=== PATIENT | female | born 2000 | race Caucasian/White ===

== ENCOUNTER 2018-05-20 01:39 | Inpatient (IN) ==
[2018-05-20 02:24] LABS: Appearance Urine Cloudy (Clear); Bacteria Urine Automated 4+ (Negative); Bilirubin Urine Negative (Negative); Color Urine Yellow; Epithelial Cell Urine Auto >30 /lpf (0-5); Glucose Urine UA Negative (Negative); Ketones Urine Negative (Negative); Leukocyte Esterase Urine 1+ (Negative); Nitrite Urine Negative (Negative); Protein Urine Negative (Negative); Specific Gravity Urine 1.013 (1.000-1.030); Urobilinogen Urine Negative (Negative); pH Urine 6.5 (4.5-7.5)
[2018-05-20 02:56] LABS: Acetaminophen < 2 ug/ml (10-30); Alanine Aminotransferase 44 U/L (12-78); Albumin Globulin Ratio 0.8 (0.9-2); Albumin Level 3.8 gm/dl (3.4-5.0); Alkaline Phosphatase 54 U/L (45-117); Aspartate Aminotransferase 26 U/L (15-37); BUN Creatinine Ratio 14.7 (10-20); Bilirubin,Total 0.4 mg/dl (0.1-1); Blood Urea Nitrogen 13 mg/dl (7-18); Calcium 9.4 mg/dl (8.5-10.1); Carbon Dioxide 23 mmol/L (21-32); Chloride 106 mmol/L (98-107); Est GFR (African American) 109.6; Est GFR (Non-African American) 94.6; Globulin 4.6 gm/dl (2.5-4.0); Glucose 103 mg/dl (70-99); Potassium 3.6 mmol/L (3.5-5.1); Sodium 138 mmol/L (136-145); Total Protein 8.4 gm/dl (6.4-8.2)
[2018-05-20 02:57] LABS: Salicylate < 1.7 mg/dl (2.8-20)
[2018-05-20 03:02] LABS: Basophils # (auto) 0.02 K/uL (0-0.2); Basophils % (auto) 0.2 %; Eosinophils # (auto) 0.01 K/uL (0-0.5); Eosinophils % (auto) 0.1 %; Hematocrit (blood only) 43.5 % (37-47); Hemoglobin 16.4 g/dL (12.0-16.0); Immature Granulocytes # (auto) 0.07 K/uL (0.00-0.02); Immature Granulocytes % (auto) 0.6 %; Lymphocytes # (auto) 3.71 K/uL (1.2-3.4); Mean Corpuscular Hgb Conc 37.7 g/dL (32-36); Mean Corpuscular Volume 87.9 fL (80-100); Mean Platelet Volume 9.4 fL (7.4-10.4); Monocytes # (auto) 0.73 K/uL (0.11-0.59); Monocytes % (auto) 5.9 %; Neutrophils # (auto) 7.84 K/uL (1.4-6.5); Neutrophils % (auto) 63.2 %; Platelet Count 248 K/uL (130-400); RDW Coefficient of Variation 12.7 % (11.5-14.5); Red Blood Count 4.95 M/uL (4.2-5.4); White Blood Count 12.38 K/uL (4.8-10.8)
[2018-05-20 03:08] LABS: Amphetamines+Metham, Urine Neg (Neg); Barbiturates, Urine Neg (Neg); Benzodiazepine, Urine Neg (Neg); Cocaine, Urine Neg (Neg); MDMA (Ecstacy), Urine Neg (Neg); Methadone, Urine Neg (Neg); Opiate, Urine Neg (Neg); Phencyclidine, Urine Neg (Neg)
[2018-05-20] MEDS ORDERED: SODIUM CHLORIDE 0.9% 1000ML 1,000 ML IV ONE (03:18)
[2018-05-20] MEDS ORDERED: SODIUM CHLORIDE 0.9% 500 ML IV SCH (03:30)
--- NOTE | 2018-05-20 05:22 | Emergency Department Note ---
Entered by Mayank Carmona acting as a scribe for Janessa Webb MD History of Present Illness General Chief Complaint: Overdose (Intentional) Stated Complaint: TOOK TOO MANY PILLS Time Seen by Provider: 05/20/18 01:55 Source: patient History of Present Illness Provider complaint: suicidal ideation Onset (ago): unknown Duration: constant and getting worse History of same: Yes Context: + significant life stressor Associated psychiatric symptoms: + depression Associated symptoms: + denies other symptoms If self harm: + has acted on plan The patient is a 18 year old female who presents to the Emergency Room with complaints of constant suicidal ideation, however today it was worse. The patient took six 150mg Effexor at 0040 in an attempt to kill herself. She states she did this because she was fighting with her boyfriend and her there has been complications between her parents. All of these stresses added up which led to her suicide attempt. This is not the first time she has overdosed on pills with the last time being a year ago. She has also tried to cut herself twice in the past year with the last episode being a month and a half ago, but she has been doing this since 3rd grade. She sees a counselor at [facility] to address these problems and the counselor knows everything. She said the reason she came to the ED tonight was because she was afraid of what the Effexor would do to her. The patient does not use tobacco, drugs, or alcohol and she denies any chance of being . Her medical history consist of bicuspid aortic valve disease, IBS, and anxiety. Home Medications Home Medications Medication Instructions Recorded Confirmed Type albuterol sulfate 2 puff INHALATION Q6H PRN 05/20/18 05/20/18 History dicyclomine 10 mg PO DIRECTED 05/20/18 05/20/18 History fluticasone-salmeterol [Advair 1 puff INHALATION DIRECTED PRN 05/20/18 History Diskus] omeprazole 40 mg PO DAILY 05/20/18 05/20/18 History sumatriptan succinate [Imitrex] 1 dose pk SUBCUT DIRECTED PRN 05/20/18 History metoprolol succinate 12.5 mg PO QAM 30 Days #15 tab 05/22/18 Rx venlafaxine 225 mg PO QAM 30 Days #90 cap 05/22/18 Rx Allergies Allergy/AdvReac Type Severity Reaction Status Date / Time cephalexin Allergy Intermediate Rash Verified 05/20/18 02:55 Past Med/Surg History Medical History Anxiety IBS (irritable bowel syndrome) Family History Other Family history non-contributory Social History Current Living Situation: Family and Other Current Living Situation Comment: boyfriend Other Information That Helps Us Care for You: No Feels Safe at Home: Yes Safety Concerns: Feels Safe At This Time Smoking Status: Never smoker Hx Alcohol Use: No Hx Substance Use: No Beliefs That Will Affect Care: None Preferred Language: Tuval[place] Review of Systems See HPI for pertinent positives & negatives. and A total of 10 systems reviewed and were otherwise negative Physical Exam Vital Signs Vital Signs - 24 hr 05/20/18 01:44 05/20/18 02:26 05/20/18 02:31 Temperature 37.1 C Temperature Source Oral Sepsis Recent Fever Within 48 Hours No Sepsis New/Unexplained Change in Mental Status No Sepsis Action Taken by Nursing No Action Required Pulse Rate 118 H 89 89 Pulse Rhythm Regular Pulse Strength Normal Respiratory Rate 18 21 20 Respiratory Effort / Characteristics Non-Labored Spontaneous Respiratory Depth Normal Respiratory Pattern Regular Blood Pressure 148/96 H 141/83 H 145/81 H Blood Pressure Mean 113 102 102 Blood Pressure Position Sitting Pulse Oximetry 97 98 99 Oxygen Delivery Method Room Air 05/20/18 03:00 05/20/18 03:30 05/20/18 04:00 Temperature Temperature Source Sepsis Recent Fever Within 48 Hours Sepsis New/Unexplained Change in Mental Status Sepsis Action Taken by Nursing Pulse Rate 94 H 122 H 97 H Pulse Rhythm Pulse Strength Respiratory Rate 15 14 23 Respiratory Effort / Characteristics Respiratory Depth Respiratory Pattern Blood Pressure 128/97 144/103 H 132/94 Blood Pressure Mean 107 116 106 Blood Pressure Position Pulse Oximetry 98 99 Oxygen Delivery Method 05/20/18 04:30 05/20/18 04:48 Temperature Temperature Source Sepsis Recent Fever Within 48 Hours Sepsis New/Unexplained Change in Mental Status Sepsis Action Taken by Nursing Pulse Rate 102 H Pulse Rhythm Pulse Strength Respiratory Rate 20 Respiratory Effort / Characteristics Respiratory Depth Respiratory Pattern Blood Pressure 141/89 H Blood Pressure Mean 106 Blood Pressure Position Pulse Oximetry 99 Oxygen Delivery Method Room Air Vital signs reviewed. General: Well-appearing 18 year old female, in no significant distress. HEENT: No scleral icterus, PERRLA, neck supple. Atraumatic. Cardiovascular: Slightly tachycardic rate and regular rhythm, no extra sounds. Pulmonary: Clear to auscultation bilaterally, normal work of breathing. Abdomen: Soft, nontender, nondistended, positive bowel sounds. Musculoskeletal: Atraumatic, no peripheral edema. Neurologic: Patient awake alert and oriented x 3, full strength in all 4 extremities. Facial muscles are symmetric. Skin: Warm, dry, no rash Psych: +SI, -HI Course 0210: Past medical records reviewed. The patient was evaluated in room A05, and a complete history and physical examination were performed. 0245: Poison control was contacted and they said we need to monitor the patient for 12 hours given the pills she took were Effexor ER. 0409: I spoke to Dr. Vitaly [facility] about the patient's case. He is going to accept the patient for further observation. Consultations Consultation #1: I spoke to Dr. Vitaly Rodriguez about the patient 's case. He is going to accept the patient for further observation. Time: 04:09 Administered Medications Discontinued Medications Acetaminophen (Tylenol) 325 mg PO Q4H PRN PRN Reason: Pain Stop: 06/20/18 16:18 Last Admin: 05/22/18 09:04 Dose: 650 mg Admin: 05/22/18 03:16 Dose: 325 mg Admin: 05/21/18 16:49 Dose: 325 mg Dicyclomine HCl (Bentyl) 10 mg PO Q6H PRN PRN Reason: Cramping Stop: 06/19/18 19:45 Last Admin: 05/20/18 20:48 Dose: 10 mg Sodium Chloride (Nss) 500 mls @ 125 mls/hr IV .Q4H ARLETH Stop: 06/19/18 03:29 Last Infusion: 05/20/18 07:24 Dose: 0 mls/hr Admin: 05/20/18 03:29 Dose: 125 mls/hr Sodium Chloride (Nss 1000ml) 1,000 mls @ 999 mls/hr IV .Q1H1M ONE Stop: 05/20/18 04:18 Last Infusion: 05/20/18 04:47 Dose: 0 mls/hr Admin: 05/20/18 03:29 Dose: 999 mls/hr Sodium Chloride (Nss 1000ml) 1,000 mls @ 125 mls/hr IV .Q8H ARLETH Stop: 06/19/18 05:34 Last Infusion: 05/21/18 13:50 Dose: 0 mls/hr Admin: 05/21/18 05:50 Dose: 125 mls/hr Infusion: 05/21/18 03:49 Dose: 125 mls/hr Admin: 05/20/18 19:49 Dose: 125 mls/hr Infusion: 05/20/18 19:49 Dose: 125 mls/hr Admin: 05/20/18 12:04 Dose: 125 mls/hr Infusion: 05/20/18 12:04 Dose: 125 mls/hr Admin: 05/20/18 05:59 Dose: 125 mls/hr Metoprolol Succinate (Toprol Xl) 12.5 mg PO QAM ARLETH Stop: 06/21/18 08:59 Last Admin: 05/22/18 09:54 Dose: 12.5 mg Ondansetron HCl (Zofran) 4 mg IV NOW STA Stop: 05/21/18 21:13 Last Admin: 05/21/18 21:15 Dose: 4 mg Pantoprazole Sodium (Protonix) 40 mg PO DAILY ARLETH Stop: 06/19/18 08:59 Last Admin: 05/22/18 08:58 Dose: 40 mg Admin: 05/21/18 08:29 Dose: 40 mg Admin: 05/20/18 08:18 Dose: 40 mg Potassium Chloride (Klor-Con M20) 40 meq PO NOW STA Stop: 05/20/18 10:09 Last Admin: 05/20/18 12:04 Dose: 40 meq Fluticasone/Salmeterol (Advair Diskus 100/50) 1 puffs INH Q12H ARLETH Stop: 06/19/18 08:59 Last Admin: 05/22/18 08:58 Dose: 1 puffs Admin: 05/21/18 21:44 Dose: 1 puffs Admin: 05/21/18 08:26 Dose: 1 puffs Admin: 05/20/18 20:47 Dose: 1 puffs Admin: 05/20/18 08:18 Dose: 1 puffs Trimethoprim/Sulfamethoxazole (Septra Ds 800/160mg Tab) 1 tab PO Q12 ARLETH Stop: 05/25/18 20:59 Last Admin: 05/22/18 08:58 Dose: 1 tab Admin: 05/21/18 21:45 Dose: 1 tab Admin: 05/21/18 08:30 Dose: 1 tab Admin: 05/20/18 20:48 Dose: 1 tab Admin: 05/20/18 14:16 Dose: 1 tab Venlafaxine HCl (Effexor Extended Release) 150 mg PO NOW ONE Stop: 05/21/18 20:00 Last Admin: 05/21/18 21:44 Dose: 150 mg Venlafaxine HCl (Effexor Extended Release) 225 mg PO QAM [facility] Stop: 06/21/18 08:59 Last Admin: 05/22/18 09:54 Dose: 225 mg Medical Decision Making Differential Diagnosis Differential diagnoses considered include mood disorder, infection, hypoglycemia , electrolyte abnormalities, cardiac sources, intracerebral event, toxicologic, neurologic, as well as others. Medical Records Attestation: I reviewed the patient's medical records. Home Medications Current Medication List: was personally reviewed by me Laboratory Data Attestation: I reviewed the patient's lab results. Result diagrams: 05/21/18 05:13 05/21/18 05:13 Lab Results 05/20/18 05/20/18 05/20/18 Range/Units 01:50 01:50 01:50 WBC (4.8-10.8) K/uL RBC (4.2-5.4) M/uL Hgb (12.0-16.0) g/dL Hct (37-47) % MCV (80-100) fL MCH (25-34) pg MCHC (32-36) g/dL RDW Std Deviation (36.4-46.3) fL RDW Coeff of Andrae (11.5-14.5) % Plt Count (130-400) K/uL MPV (7.4-10.4) fL Immature Gran % (Auto) % Neut % (Auto) % Lymph % (Auto) % [place] % (Auto) % Eos % (Auto) % Baso % (Auto) % Immature Gran # (Auto) (0.00-0.02) K/uL Neut # (Auto) (1.4-6.5) K/uL Lymph # (Auto) (1.2-3.4) K/uL [place] # (Auto) (0.11-0.59) K/uL Eos # (Auto) (0-0.5) K/uL Baso # (Auto) (0-0.2) K/uL Sodium (136-145) mmol/L Potassium (3.5-5.1) mmol/L Chloride (98-107) mmol/L Carbon Dioxide (21-32) mmol/L Anion Gap (3-11) BUN (7-18) mg/dl Creatinine (0.6-1.2) mg/dl Est Cr Clr Drug Dosing Est GFR ( Amer) Est GFR (Non-Af Amer) BUN/Creatinine Ratio (10-20) Glucose (70-99) mg/dl Calcium (8.5-10.1) mg/dl Magnesium (1.8-2.4) mg/dl Total Bilirubin (0.1-1) mg/dl Direct Bilirubin (0-0.2) mg/dl AST (15-37) U/L ALT (12-78) U/L Alkaline Phosphatase (45-117) U/L Total Protein (6.4-8.2) gm/dl Albumin (3.4-5.0) gm/dl Globulin (2.5-4.0) gm/dl Albumin/Globulin Ratio (0.9-2) Urine Color Yellow Urine Appearance Cloudy H (Clear) Urine pH 6.5 (4.5-7.5) Ur Specific [place] 1.013 (1.000-1.030) Urine Protein Negative (Negative) Urine Glucose (UA) Negative (Negative) Urine Ketones Negative (Negative) Urine Blood Negative (Negative) Urine Nitrite Negative (Negative) Urine Bilirubin Negative (Negative) Urine Urobilinogen Negative (Negative) Ur Leukocyte Esterase 1+ H (Negative) Urine WBC (Auto) 10-30 H (0-5) /hpf Urine RBC (Auto) 0-4 (0-4) /hpf U Hyaline Cast (Auto) 1-5 (0-5) /lpf U Epithel Cells (Auto) >30 H (0-5) /lpf Urine Bacteria (Auto) 4+ H (Negative) POC Ur Test NEG (NEG) Nasal Screen MRSA (PCR) (Negative) Salicylates (2.8-20) mg/dl Urine Opiates Screen Neg (Neg) Ur Methadone, Qual Neg (Neg) Acetaminophen (10-30) ug/ml Urine Barbiturates Neg (Neg) Ur Phencyclidine (PCP) Neg (Neg) U Amphetamin/Meth Scrn Neg (Neg) MDMA (Ecstasy) Screen Neg (Neg) U Benzodiazepines Scrn Neg (Neg) Ur Cocaine Metabolite Neg (Neg) U Marijuana (THC) Screen Neg (Neg) Ethyl Alcohol mg/dL (0-3) mg/dl 05/20/18 05/20/18 05/20/18 Range/Units 02:06 02:06 02:06 WBC 12.38 H (4.8-10.8) K/uL RBC 4.95 (4.2-5.4) M/uL Hgb 16.4 H (12.0-16.0) g/dL Hct 43.5 (37-47) % MCV 87.9 (80-100) fL MCH 33.1 (25-34) pg MCHC 37.7 H (32-36) g/dL RDW Std Deviation 40.0 (36.4-46.3) fL RDW Coeff of Andrae 12.7 (11.5-14.5) % Plt Count 248 (130-400) K/uL MPV 9.4 (7.4-10.4) fL Immature Gran % (Auto) 0.6 % Neut % (Auto) 63.2 % Lymph % (Auto) 30.0 % [place] % (Auto) 5.9 % Eos % (Auto) 0.1 % Baso % (Auto) 0.2 % Immature Gran # (Auto) 0.07 H (0.00-0.02) K/uL Neut # (Auto) 7.84 H (1.4-6.5) K/uL Lymph # (Auto) 3.71 H (1.2-3.4) K/uL [place] # (Auto) 0.73 H (0.11-0.59) K/uL Eos # (Auto) 0.01 (0-0.5) K/uL Baso # (Auto) 0.02 (0-0.2) K/uL Sodium 138 (136-145) mmol/L Potassium 3.6 (3.5-5.1) mmol/L Chloride 106 (98-107) mmol/L Carbon Dioxide 23 (21-32) mmol/L Anion Gap 9.0 (3-11) BUN 13 (7-18) mg/dl Creatinine 0.88 (0.6-1.2) mg/dl Est Cr Clr Drug Dosing Not Reportable Est GFR ( Amer) 109.6 Est GFR (Non-Af Amer) 94.6 BUN/Creatinine Ratio 14.7 (10-20) Glucose 103 H (70-99) mg/dl Calcium 9.4 (8.5-10.1) mg/dl Magnesium (1.8-2.4) mg/dl Total Bilirubin 0.4 (0.1-1) mg/dl Direct Bilirubin (0-0.2) mg/dl AST 26 (15-37) U/L ALT 44 (12-78) U/L Alkaline Phosphatase 54 (45-117) U/L Total Protein 8.4 H (6.4-8.2) gm/dl Albumin 3.8 (3.4-5.0) gm/dl Globulin 4.6 H (2.5-4.0) gm/dl Albumin/Globulin Ratio 0.8 L (0.9-2) Urine Color Urine Appearance (Clear) Urine pH (4.5-7.5) Ur Specific [place] (1.000-1.030) Urine Protein (Negative) Urine Glucose (UA) (Negative) Urine Ketones (Negative) Urine Blood (Negative) Urine Nitrite (Negative) Urine Bilirubin (Negative) Urine Urobilinogen (Negative) Ur Leukocyte Esterase (Negative) Urine WBC (Auto) (0-5) /hpf Urine RBC (Auto) (0-4) /hpf U Hyaline Cast (Auto) (0-5) /lpf U Epithel Cells (Auto) (0-5) /lpf Urine Bacteria (Auto) (Negative) POC Ur Test (NEG) Nasal Screen MRSA (PCR) (Negative) Salicylates < 1.7 L (2.8-20) mg/dl Urine Opiates Screen (Neg) Ur Methadone, Qual (Neg) Acetaminophen < 2 L (10-30) ug/ml Urine Barbiturates (Neg) Ur Phencyclidine (PCP) (Neg) U Amphetamin/Meth Scrn (Neg) MDMA (Ecstasy) Screen (Neg) U Benzodiazepines Scrn (Neg) Ur Cocaine Metabolite (Neg) U Marijuana (THC) Screen (Neg) Ethyl Alcohol mg/dL (0-3) mg/dl 05/20/18 05/20/18 05/20/18 Range/Units 02:06 06:00 07:02 WBC 10.71 (4.8-10.8) K/uL RBC 4.61 (4.2-5.4) M/uL Hgb 14.9 (12.0-16.0) g/dL Hct 40.6 (37-47) % MCV 88.1 (80-100) fL MCH 32.3 (25-34) pg MCHC 36.7 H (32-36) g/dL RDW Std Deviation 40.5 (36.4-46.3) fL RDW Coeff of Andrae 12.8 (11.5-14.5) % Plt Count 227 (130-400) K/uL MPV 9.3 (7.4-10.4) fL Immature Gran % (Auto) 0.4 % Neut % (Auto) 66.3 % Lymph % (Auto) 27.3 % [place] % (Auto) 5.7 % Eos % (Auto) 0.1 % Baso % (Auto) 0.2 % Immature Gran # (Auto) 0.04 H (0.00-0.02) K/uL Neut # (Auto) 7.11 H (1.4-6.5) K/uL Lymph # (Auto) 2.92 (1.2-3.4) K/uL [place] # (Auto) 0.61 H (0.11-0.59) K/uL Eos # (Auto) 0.01 (0-0.5) K/uL Baso # (Auto) 0.02 (0-0.2) K/uL Sodium (136-145) mmol/L Potassium (3.5-5.1) mmol/L Chloride (98-107) mmol/L Carbon Dioxide (21-32) mmol/L Anion Gap (3-11) BUN (7-18) mg/dl Creatinine (0.6-1.2) mg/dl Est Cr Clr Drug Dosing Est GFR ( Amer) Est GFR (Non-Af Amer) BUN/Creatinine Ratio (10-20) Glucose (70-99) mg/dl Calcium (8.5-10.1) mg/dl Magnesium (1.8-2.4) mg/dl Total Bilirubin (0.1-1) mg/dl Direct Bilirubin (0-0.2) mg/dl AST (15-37) U/L ALT (12-78) U/L Alkaline Phosphatase (45-117) U/L Total Protein (6.4-8.2) gm/dl Albumin (3.4-5.0) gm/dl Globulin (2.5-4.0) gm/dl Albumin/Globulin Ratio (0.9-2) Urine Color Urine Appearance (Clear) Urine pH (4.5-7.5) Ur Specific [place] (1.000-1.030) Urine Protein (Negative) Urine Glucose (UA) (Negative) Urine Ketones (Negative) Urine Blood (Negative) Urine Nitrite (Negative) Urine Bilirubin (Negative) Urine Urobilinogen (Negative) Ur Leukocyte Esterase (Negative) Urine WBC (Auto) (0-5) /hpf Urine RBC (Auto) (0-4) /hpf U Hyaline Cast (Auto) (0-5) /lpf U Epithel Cells (Auto) (0-5) /lpf Urine Bacteria (Auto) (Negative) POC Ur Test (NEG) Nasal Screen MRSA (PCR) Negative (Negative) Salicylates (2.8-20) mg/dl Urine Opiates Screen (Neg) Ur Methadone, Qual (Neg) Acetaminophen (10-30) ug/ml Urine Barbiturates (Neg) Ur Phencyclidine (PCP) (Neg) U Amphetamin/Meth Scrn (Neg) MDMA (Ecstasy) Screen (Neg) U Benzodiazepines Scrn (Neg) Ur Cocaine Metabolite (Neg) U Marijuana (THC) Screen (Neg) Ethyl Alcohol mg/dL < 3.0 (0-3) mg/dl 05/20/18 05/20/18 05/21/18 Range/Units 07:02 07:02 05:13 WBC 9.33 (4.8-10.8) K/uL RBC 4.57 (4.2-5.4) M/uL Hgb 14.5 (12.0-16.0) g/dL Hct 40.8 (37-47) % MCV 89.3 (80-100) fL MCH 31.7 (25-34) pg MCHC 35.5 (32-36) g/dL RDW Std Deviation 42.0 (36.4-46.3) fL RDW Coeff of Andrae 13.0 (11.5-14.5) % Plt Count 206 (130-400) K/uL MPV 9.2 (7.4-10.4) fL Immature Gran % (Auto) 0.8 % Neut % (Auto) 64.8 % Lymph % (Auto) 28.1 % [place] % (Auto) 6.1 % Eos % (Auto) 0.1 % Baso % (Auto) 0.1 % Immature Gran # (Auto) 0.07 H (0.00-0.02) K/uL Neut # (Auto) 6.05 (1.4-6.5) K/uL Lymph # (Auto) 2.62 (1.2-3.4) K/uL [place] # (Auto) 0.57 (0.11-0.59) K/uL Eos # (Auto) 0.01 (0-0.5) K/uL Baso # (Auto) 0.01 (0-0.2) K/uL Sodium 137 (136-145) mmol/L Potassium 3.4 L (3.5-5.1) mmol/L Chloride 106 (98-107) mmol/L Carbon Dioxide 23 (21-32) mmol/L Anion Gap 9.0 (3-11) BUN 12 (7-18) mg/dl Creatinine 0.83 (0.6-1.2) mg/dl Est Cr Clr Drug Dosing 119.5 Est GFR ( Amer) 117.7 Est GFR (Non-Af Amer) 101.5 BUN/Creatinine Ratio 14.0 (10-20) Glucose 107 H (70-99) mg/dl Calcium 8.5 (8.5-10.1) mg/dl Magnesium 2.2 Cancelled (1.8-2.4) mg/dl Total Bilirubin 0.6 (0.1-1) mg/dl Direct Bilirubin 0.1 (0-0.2) mg/dl AST 20 (15-37) U/L ALT 40 (12-78) U/L Alkaline Phosphatase 50 (45-117) U/L Total Protein 7.6 (6.4-8.2) gm/dl Albumin 3.5 (3.4-5.0) gm/dl Globulin (2.5-4.0) gm/dl Albumin/Globulin Ratio (0.9-2) Urine Color Urine Appearance (Clear) Urine pH (4.5-7.5) Ur Specific [place] (1.000-1.030) Urine Protein (Negative) Urine Glucose (UA) (Negative) Urine Ketones (Negative) Urine Blood (Negative) Urine Nitrite (Negative) Urine Bilirubin (Negative) Urine Urobilinogen (Negative) Ur Leukocyte Esterase (Negative) Urine WBC (Auto) (0-5) /hpf Urine RBC (Auto) (0-4) /hpf U Hyaline Cast (Auto) (0-5) /lpf U Epithel Cells (Auto) (0-5) /lpf Urine Bacteria (Auto) (Negative) POC Ur Test (NEG) Nasal Screen MRSA (PCR) (Negative) Salicylates (2.8-20) mg/dl Urine Opiates Screen (Neg) Ur Methadone, Qual (Neg) Acetaminophen (10-30) ug/ml Urine Barbiturates (Neg) Ur Phencyclidine (PCP) (Neg) U Amphetamin/Meth Scrn (Neg) MDMA (Ecstasy) Screen (Neg) U Benzodiazepines Scrn (Neg) Ur Cocaine Metabolite (Neg) U Marijuana (THC) Screen (Neg) Ethyl Alcohol mg/dL (0-3) mg/dl 05/21/18 Range/Units 05:13 WBC (4.8-10.8) K/uL RBC (4.2-5.4) M/uL Hgb (12.0-16.0) g/dL Hct (37-47) % MCV (80-100) fL MCH (25-34) pg MCHC (32-36) g/dL RDW Std Deviation (36.4-46.3) fL RDW Coeff of Andrae (11.5-14.5) % Plt Count (130-400) K/uL MPV (7.4-10.4) fL Immature Gran % (Auto) % Neut % (Auto) % Lymph % (Auto) % [place] % (Auto) % Eos % (Auto) % Baso % (Auto) % Immature Gran # (Auto) (0.00-0.02) K/uL Neut # (Auto) (1.4-6.5) K/uL Lymph # (Auto) (1.2-3.4) K/uL [place] # (Auto) (0.11-0.59) K/uL Eos # (Auto) (0-0.5) K/uL Baso # (Auto) (0-0.2) K/uL Sodium 138 (136-145) mmol/L Potassium 3.5 (3.5-5.1) mmol/L Chloride 108 H (98-107) mmol/L Carbon Dioxide 23 (21-32) mmol/L Anion Gap 7.0 (3-11) BUN 9 (7-18) mg/dl Creatinine 0.83 (0.6-1.2) mg/dl Est Cr Clr Drug Dosing 119.5 Est GFR ( Amer) 117.7 Est GFR (Non-Af Amer) 101.5 BUN/Creatinine Ratio 11.2 (10-20) Glucose 114 H (70-99) mg/dl Calcium 8.1 L (8.5-10.1) mg/dl Magnesium (1.8-2.4) mg/dl Total Bilirubin 0.7 (0.1-1) mg/dl Direct Bilirubin (0-0.2) mg/dl AST 18 (15-37) U/L ALT 33 (12-78) U/L Alkaline Phosphatase 42 L (45-117) U/L Total Protein 7.1 (6.4-8.2) gm/dl Albumin 3.2 L (3.4-5.0) gm/dl Globulin 3.9 (2.5-4.0) gm/dl Albumin/Globulin Ratio 0.8 L (0.9-2) Urine Color Urine Appearance (Clear) Urine pH (4.5-7.5) Ur Specific [place] (1.000-1.030) Urine Protein (Negative) Urine Glucose (UA) (Negative) Urine Ketones (Negative) Urine Blood (Negative) Urine Nitrite (Negative) Urine Bilirubin (Negative) Urine Urobilinogen (Negative) Ur Leukocyte Esterase (Negative) Urine WBC (Auto) (0-5) /hpf Urine RBC (Auto) (0-4) /hpf U Hyaline Cast (Auto) (0-5) /lpf U Epithel Cells (Auto) (0-5) /lpf Urine Bacteria (Auto) (Negative) POC Ur Test (NEG) Nasal Screen MRSA (PCR) (Negative) Salicylates (2.8-20) mg/dl Urine Opiates Screen (Neg) Ur Methadone, Qual (Neg) Acetaminophen (10-30) ug/ml Urine Barbiturates (Neg) Ur Phencyclidine (PCP) (Neg) U Amphetamin/Meth Scrn (Neg) MDMA (Ecstasy) Screen (Neg) U Benzodiazepines Scrn (Neg) Ur Cocaine Metabolite (Neg) U Marijuana (THC) Screen (Neg) Ethyl Alcohol mg/dL (0-3) mg/dl ECG Data Indication: toxicologic Rate (beats per minute): 85 Rhythm: normal sinus Findings: no PAC, no PVC and no acute ischemic change Blood Pressure Blood Pressure Findings: Elevated blood pressure Blood Pressure Disposition: further management by hospitalist MDM Narrative This pt was evaluated and appeared to be in no distress. IV access was obtained and lab work was drawn. Pt was placed on the night monitor. IVF were given. Pt remained stable in ED. Poison control was contacted and recommended extended tele monitoring d/t sustained release formulation ingested. Pt was d/w the hospitalist for further management. Pt will require psych eval after medically clear. Impression & Plan Medication overdose, Suicide attempt Discharge Plan Visit Data *Final* Discharge Date/Time: 05/20/18 04:48 Chief Complaint: Overdose (Intentional) Stated Complaint: TOOK TOO MANY PILLS ED Provider: Janessa Webb Discharge Problem: Medication overdose, Suicide attempt Patient Disposition: Admitted As Inpatient Condition: Good Discharge Instructions Interventions: ED Discharge Assessment Last Done: 05/20/18 04:48 The scribe's documentation has been prepared under my direction and personally reviewed by me in its entirety. I confirm that the note above accurately reflects all work, treatment, procedures, and medical decision making performed by me.
[2018-05-20] MEDS: SODIUM CHLORIDE 0.9% 1000ML 1,000 ML IV SCH ×3 (05:59→19:49)
--- NOTE | 2018-05-20 06:29 | History and Physical Report ---
DATE OF ADMISSION: 05/20/2018 CHIEF COMPLAINT: Drug overdose, suicidal ideation. HISTORY OF PRESENT ILLNESS: This is a 18-year-old female with past medical history significant for major depression, recurrent, bicuspid aortic wall, mild persistent asthma, lactose intolerance, GERD, irritable bowel syndrome, presents with suicidal ideation and drug overdose. She took 6 tablets of Effexor 150 mg long acting around 12:40 in the morning. She says she has been suicidal for a long time. She has a history of cutting herself and also taking pills in attempt to end her life. She is still feeling the same. She is somewhat tachycardic, otherwise hemodynamics are okay. Complains of some dizziness, nausea and some abdominal discomfort. Denies any chest pain, no shortness of breath, no cough, not feeling cold, no fever. Appetite is not that great, not sleeping much, have racing thoughts. Says normal bowel and bladder movements. Currently, alert and oriented. Boyfriend is in the room. ALLERGIES: CEPHALEXIN. PAST MEDICAL HISTORY: As mentioned above. PAST SURGICAL HISTORY: EGD with biopsies, excision of lipoma. MEDICATIONS: The patient is on omeprazole 40 mg p.o. daily, Effexor XR 150 mg p.o. daily, albuterol 2 puffs every 4 hours p.r.n., Bentyl 10 mg p.o. q.i.d. p.r.n., Advair Diskus 100/50 mcg 1 puff b.i.d., Imitrex p.r.n., hydroxyzine 25 mg p.o. daily p.r.n. FAMILY HISTORY: Significant for: Father had cancer, thyroid disorder. Mother had breast cancer, lactose intolerance, fibromyalgia, migraine headaches. Sister has migraine headaches, GERD, polycystic ovarian syndrome. SOCIAL HISTORY: Single. No smoking history. No alcohol history. No drug history. REVIEW OF SYMPTOMS: As per HPI. Rest of review of symptoms negative. PHYSICAL EXAMINATION: GENERAL: The patient is of moderate build, not in acute distress. VITAL SIGNS: Temperature 37.1, pulse 97, respiratory rate 23, blood pressure 132/94, oxygen 99% room air. HEENT: No pallor, no icterus. Pupils equal, round and reactive to light. NECK: No JVD, no neck masses, no carotid bruits. CARDIOVASCULAR: S1, S2 heard, regular rate and rhythm. Some tachycardia. No murmurs, no gallop. RESPIRATORY SYSTEM: Normal AP diameter. No accessory muscle use. No wheezing, no crackles. ABDOMEN: Soft, bowel sounds present. Nontender. No distention. CENTRAL NERVOUS SYSTEM: Cranial nerves II-XII grossly intact. Nonfocal. EXTREMITIES: No edema, no erythema. LABORATORY DATA: WBC 12.3, hemoglobin 16.4, hematocrit 43.5, platelets 248. Sodium 138, potassium 3.6, chloride 106, bicarbonate 23, BUN 13, creatinine 0.8, serum glucose 103, calcium 9.4, total bilirubin 0.4, AST 26, ALT 44, alkaline phosphatase 54, total protein 8.4, albumin 3.8. Urinalysis positive for leukocyte esterase. test negative. Salicylate is less than 1.7, acetaminophen less than 2. Rest of urine tox screen is negative. Alcohol level less than 3. EKG: Shows normal sinus rhythm with rate of 85, no acute ST changes seen. No QT prolongation seen. ASSESSMENT AND PLAN: This is a 18-year-old female who presents with suicidal ideation, drug overdose. 1. Suicidal ideation and drug overdose with 6 tablets of Effexor long acting 150 mg. ER contacted poison control and advised for 12 hours monitoring. We will give IV fluids, repeat EKG in a.m., repeat labs and monitor in tele floor, one on one observation. History of suicidal ideation in the past as per the patient, says this is ongoing for long time. Consult psychiatry in the a.m. and the patient is okay to go to behavioral health unit once cleared medically. 2. History of asthma. Continue Advair Diskus and albuterol p.r.n. 3. Gastroesophageal reflux disease. Continue omeprazole. 4. History of migraines. Imitrex p.r.n., which is held for now. 5. Irritable bowel syndrome. We are holding dicyclomine for now. 6. History of depression, recurrent. Holding venlafaxine for now as she overdosed on it and await psychiatric consult. 7. Deep venous thrombosis prophylaxis. SCDs for now. 8. Disposition: Admit to tele floor. Plan to discharge to Behavioral Health Unit when patient is medically stable. Level 1 full code. MTDD
[2018-05-20 07:14] LABS: Basophils # (auto) 0.02 K/uL (0-0.2); Basophils % (auto) 0.2 %; Eosinophils # (auto) 0.01 K/uL (0-0.5); Eosinophils % (auto) 0.1 %; Hematocrit (blood only) 40.6 % (37-47); Hemoglobin 14.9 g/dL (12.0-16.0); Immature Granulocytes # (auto) 0.04 K/uL (0.00-0.02); Immature Granulocytes % (auto) 0.4 %; Lymphocytes # (auto) 2.92 K/uL (1.2-3.4); Lymphocytes % (auto) 27.3 %; Mean Corpuscular Hgb Conc 36.7 g/dL (32-36); Mean Corpuscular Volume 88.1 fL (80-100); Mean Platelet Volume 9.3 fL (7.4-10.4); Monocytes # (auto) 0.61 K/uL (0.11-0.59); Monocytes % (auto) 5.7 %; Neutrophils # (auto) 7.11 K/uL (1.4-6.5); Neutrophils % (auto) 66.3 %; Platelet Count 227 K/uL (130-400); RDW Coefficient of Variation 12.8 % (11.5-14.5); RDW Standard Deviation 40.5 fL (36.4-46.3); Red Blood Count 4.61 M/uL (4.2-5.4); White Blood Count 10.71 K/uL (4.8-10.8)
[2018-05-20 07:46] LABS: Albumin Level 3.5 gm/dl (3.4-5.0); Bilirubin Direct 0.1 mg/dl (0-0.2); Calcium 8.5 mg/dl (8.5-10.1); Creatinine Clr Calc Pharmacy 119.5 ml/min; Est GFR (African American) 117.7; Est GFR (Non-African American) 101.5; Magnesium 2.2 mg/dl (1.8-2.4); Potassium 3.4 mmol/L (3.5-5.1)
[2018-05-20 07:48] LABS: Bilirubin,Total 0.6 mg/dl (0.1-1); Total Protein 7.6 gm/dl (6.4-8.2)
[2018-05-20] MEDS: FLUTICASONE/SALMETEROL 100/50 (ADVAIR) 14 PUFF/1 INHALER INH SCH ×2 (08:18→20:47)
[2018-05-20] MEDS: PANTOprazole 40 MG TAB PO SCH (08:18)
--- NOTE | 2018-05-20 09:51 | Hospitalist Progress Note ---
Date of Service May 20, 2018 Assessment & Plan (1) Medication overdose: This is a 18-year-old female who presents after drug misuse of Effexor and concerns of suicidal ideation Drug Overdose, Drug Misuse, possible suicidal ideations - she took 6 tablets of Effexor (venlafaxine) rather than once a day as prescribed at 12:40 Am prior to coming to the hospital -In the ED, poison control was contacted and advised for 12 hours monitoring -currently on telemetry monitoring, on IV fluids 125 cc/hr normal saline, monitor EKGs for QTc as venlafaxine may cause QT prolongation History of depression, recurrent. -Holding venlafaxine for now -patient reports that she does not take hydroxyzine anymore for anxiety because it just makes her drowsy; hold hydroxyzine -behavioral health consult requested Urine with positive bacteria -start bactrim in case there is an urinary tract infection History of asthma -Continue Advair Diskus and albuterol p.r.n. Gastroesophageal reflux disease -Continue omeprazole. History of migraines -Imitrex p.r.n., which is held for now. Irritable bowel syndrome -holding dicyclomine for now. Deep venous thrombosis prophylaxis. SCDs Full Code Family father Keanu [phone] mother Marino [phone] Subjective Patient seen and examined at bedside. Patient denies chest pain or shortness of breath. Denies lightheadedness. She reported that she slept a little bit since coming from emergency room. Patient denies dsyuria but dose report of frequent urinary tract infections. When patient was asked about drug misuse ingestion for which she came to the hospital for, she reports that she took 6 tablets of Effexor (venlafaxine) rather than once a day as prescribed at 12:40 Am prior to coming to the hospital Reports 1 episode of vomiting in the ED but currently only feeling some nausea. Medical doctor asked what were her thoughts when she took those pills at the time and she reports that she was not thinking at all and just took them. Denies taking medication with alcohol Reporting current stressors in her life recently She reported last year she also overtook hydroxyzine and then slept for 3 days. Also reports she was not thinking anything at the time. When medical doctor asked what were her thoughts subsequently to last year's drug misuse, she reports that she has feelings of suicidality since 3rd grade She reports that recently she has been in the interview process at [facility] with the [facility] to be assigned an outpatient psychiatrist but has not seen an actual psychiatrist yet. Physical Exam 2 Vital Signs (Past 24 Hours): Last Vital Signs Temp 37.2 C 05/20/18 08:00 Pulse 68 05/20/18 08:00 Resp 20 05/20/18 08:00 BP 141/82 H 05/20/18 08:00 Pulse Ox 98 05/20/18 08:00 Constitutional: WD/WN, vitals as above Eyes: PERRL, conjunctivae normal, anicteric sclerae EOM intact bilaterally ENMT: external ear and nose normal, oropharynx normal Neck: normal visual inspection and trachea midline Respiratory: normal respiratory effort, lungs clear to auscultation Cardiovascular: RRR, no murmur, no edema Gastrointestinal (Abdomen): normal bowel sounds, soft, nontender, no hepatosplenomegaly Musculoskeletal: no cyanosis or clubbing, extremities motor strength 5/5 Head/Neck/Chest: normocephalic and head atraumatic Neurologic: PERRL, EOMI, accommodation nl, no face palsy, no dysarthria CN' s II-XI intact bilaterally Psychiatric: Orientation: alert, oriented x 3 and oriented to person Eye Contact: good eye contact Speech: normal rate/rhythm/volume of speech _ (1) Medication overdose Encounter type: initial encounter Injury intent: intentional self-harm Qualified Code(s): T50.902A - Poisoning by unspecified drugs, medicaments and biological substances, intentional self-harm, initial encounter
[2018-05-20] MEDS ORDERED: POTASSIUM CHLORIDE 20 MEQ TABCR PO STA (10:08)
[2018-05-20] MEDS: SULFAMETHOXAZOLE/TRIMETHOPRIM DS 800/160MG TAB PO SCH ×2 (14:16→20:48)
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
[2018-05-20] MEDS ORDERED: DICYCLOMINE HCL 10 MG CAP PO PRN (19:46)
[2018-05-20] MEDS ORDERED: ALUMINUM/MAGNESIUM SUSP 30 ML UDC PO PRN (19:47)
[2018-05-21] MEDS: SODIUM CHLORIDE 0.9% 1000ML 1,000 ML IV SCH (05:50)
[2018-05-21 06:07] LABS: Basophils # (auto) 0.01 K/uL (0-0.2); Basophils % (auto) 0.1 %; Eosinophils # (auto) 0.01 K/uL (0-0.5); Eosinophils % (auto) 0.1 %; Hematocrit (blood only) 40.8 % (37-47); Hemoglobin 14.5 g/dL (12.0-16.0); Immature Granulocytes # (auto) 0.07 K/uL (0.00-0.02); Immature Granulocytes % (auto) 0.8 %; Lymphocytes # (auto) 2.62 K/uL (1.2-3.4); Lymphocytes % (auto) 28.1 %; Mean Corpuscular Hgb Conc 35.5 g/dL (32-36); Mean Corpuscular Volume 89.3 fL (80-100); Mean Platelet Volume 9.2 fL (7.4-10.4); Monocytes # (auto) 0.57 K/uL (0.11-0.59); Monocytes % (auto) 6.1 %; Neutrophils # (auto) 6.05 K/uL (1.4-6.5); Neutrophils % (auto) 64.8 %; Platelet Count 206 K/uL (130-400); Red Blood Count 4.57 M/uL (4.2-5.4); White Blood Count 9.33 K/uL (4.8-10.8)
[2018-05-21 06:29] LABS: Albumin Level 3.2 gm/dl (3.4-5.0); BUN Creatinine Ratio 11.2 (10-20); Calcium 8.1 mg/dl (8.5-10.1); Creatinine Clr Calc Pharmacy 119.5 ml/min; Est GFR (African American) 117.7; Est GFR (Non-African American) 101.5; Potassium 3.5 mmol/L (3.5-5.1)
[2018-05-21 06:31] LABS: Albumin Globulin Ratio 0.8 (0.9-2); Bilirubin,Total 0.7 mg/dl (0.1-1); Globulin 3.9 gm/dl (2.5-4.0); Total Protein 7.1 gm/dl (6.4-8.2)
[2018-05-21] MEDS: FLUTICASONE/SALMETEROL 100/50 (ADVAIR) 14 PUFF/1 INHALER INH SCH ×2 (08:26→21:44)
[2018-05-21] MEDS: PANTOprazole 40 MG TAB PO SCH (08:29)
[2018-05-21] MEDS: SULFAMETHOXAZOLE/TRIMETHOPRIM DS 800/160MG TAB PO SCH ×2 (08:30→21:45)
--- NOTE | 2018-05-21 09:58 | Hospitalist Progress Note ---
Date of Service May 21, 2018 Assessment & Plan (1) Medication overdose: This is a 18-year-old female who presents after drug misuse of Effexor and concerns of suicidal ideation Drug Overdose, Drug Misuse, possible suicidal ideations - she took 6 tablets of Effexor (venlafaxine) rather than once a day as prescribed at 12:40 Am prior to coming to the hospital -In the ED, poison control was contacted and advised for 12 hours monitoring -patient has on this admission been monitored for more than the recommended 12 hours on telemetry, was mildly tachycardic in afternoon of 05/20/18 while on IV fluids -Heart rate controlled on 05/21/18 and no progressive changes to QTc; will monitor on telemetry off IV fluids History of depression, recurrent. -Holding venlafaxine for now -patient reports that she does not take hydroxyzine anymore for anxiety because it just makes her drowsy; hold hydroxyzine -as of 05/20/18 psychiatry consult, patient recommended that when medically stable the patient's outpatient dose of Effexor for depression to be increased from 150 mg daily to 225 mg daily and could be ordered as venlafaxine ER 150 mg capsule plus venlafaxine 75 mg capsule to be taken together -as of 05/21/18 hospitalist physician will continue to hold venlafaxine for now and if patient remains with tachycardia symptoms off Iv fluids on 05/21/18 , then venlafaxine can be considered to be started on 05/22/18 Urine with positive bacteria -started bactrim on 05/20/18 in case there is an urinary tract infection; continue bactrim History of asthma -Continue Advair Diskus and albuterol p.r.n. Gastroesophageal reflux disease -Continue omeprazole. History of migraines -Imitrex p.r.n., which is held for now. Irritable bowel syndrome -holding dicyclomine for now. Deep venous thrombosis prophylaxis. SCDs Full Code Family father Keanu [phone] mother Marino [phone] Subjective Patient's heart rate is doing better today. No longer tachycardic. And no progression of the QTc interval on EKG. QTC on EKG is 433 today. Patient denies shortness of breath. Reports chest discomfort on palpation which is mild and likely muscular skeletal in nature. Patient denies nausea or abdominal pain. Physical Exam 2 Vital Signs (Past 24 Hours): Last Vital Signs Temp 36.7 C 05/21/18 07:02 Pulse 91 H 05/21/18 03:14 Resp 16 05/21/18 07:02 BP 133/89 05/21/18 07:02 Pulse Ox 98 05/21/18 07:02 Constitutional: WD/WN, vitals as above Eyes: PERRL, conjunctivae normal, anicteric sclerae EOM intact bilaterally ENMT: external ear and nose normal, oropharynx normal Neck: normal visual inspection and trachea midline Respiratory: normal respiratory effort, lungs clear to auscultation Cardiovascular: RRR, no murmur, no edema Gastrointestinal (Abdomen): normal bowel sounds, soft, nontender, no hepatosplenomegaly Musculoskeletal: no cyanosis or clubbing, extremities motor strength 5/5 Head/Neck/Chest: normocephalic and head atraumatic Neurologic: PERRL, EOMI, accommodation nl, no face palsy, no dysarthria CN' s II-XI intact bilaterally Psychiatric: Orientation: alert, oriented x 3 and oriented to person Eye Contact: good eye contact Speech: normal rate/rhythm/volume of speech _ (1) Medication overdose Encounter type: initial encounter Injury intent: intentional self-harm Qualified Code(s): T50.902A - Poisoning by unspecified drugs, medicaments and biological substances, intentional self-harm, initial encounter
[2018-05-21] MEDS: ACETAMINOPHEN 325 MG TAB PO PRN (16:49)
[2018-05-21] MEDS ORDERED: VENLAFAXINE HCL XR 150 MG CAPXR PO ONE (19:59)
[2018-05-21] MEDS ORDERED: ONDANSETRON INJ 2 MG/ML 2 ML VIAL IV STA (21:12)
[2018-05-22] MEDS: ACETAMINOPHEN 325 MG TAB PO PRN ×2 (03:16→09:04)
[2018-05-22] MEDS: PANTOprazole 40 MG TAB PO SCH (08:58)
[2018-05-22] MEDS: FLUTICASONE/SALMETEROL 100/50 (ADVAIR) 14 PUFF/1 INHALER INH SCH (08:58)
[2018-05-22] MEDS: SULFAMETHOXAZOLE/TRIMETHOPRIM DS 800/160MG TAB PO SCH (08:58)
[2018-05-22] MEDS ORDERED: METOPROLOL TARTRATE 25 MG TAB PO SCH (09:00)
[2018-05-22] MEDS ORDERED: VENLAFAXINE HCL XR 75 MG CAPXR PO SCH (09:00)
[2018-05-22] MEDS ORDERED: METOPROLOL SUCC 25MG EXT REL TAB PO SCH (09:00)
--- NOTE | 2018-05-22 13:11 | Hospitalist Progress Note ---
Date of Service May 22, 2018 Assessment & Plan (1) Medication overdose: This is a 18-year-old female who presents after drug misuse of Effexor and concerns of suicidal ideation Drug Overdose, Drug Misuse, possible suicidal ideations - she took 6 tablets of Effexor (venlafaxine) rather than once a day as prescribed at 12:40 Am prior to coming to the hospital -In the ED, poison control was contacted and advised for 12 hours monitoring -patient has on this admission been monitored for more than the recommended 12 hours on telemetry, was mildly tachycardic in afternoon of 05/20/18 while on IV fluids -Heart rate controlled on 05/21/18 and no progressive changes to QTc; will monitor on telemetry off IV fluids History of depression, recurrent. / Tachycardia -Holding venlafaxine for now -patient reports that she does not take hydroxyzine anymore for anxiety because it just makes her drowsy; hold hydroxyzine -as of 05/20/18 psychiatry consult, patient recommended that when medically stable the patient's outpatient dose of Effexor for depression to be increased from 150 mg daily to 225 mg daily -as of 05/21/18 hospitalist physician will continue to hold venlafaxine for now and if patient remains without tachycardia symptoms off IV fluids on 05/21/18 , then venlafaxine can be considered to be started on 05/22/18 -05/22/18 Tachycardia generally resolved with heart rate less than 100 bpm typically but some rates above 100 bpm were picked by telemetry at night; Venlafaxine restarted at higher doses as 225 mg daily and because of mild tachycardia previously, patient also started on low dose metoprolol succinate 12.5 mg -of note patient has history of known bicuspid aortic valve seen in 11/02/17 with good function noted on that echocardiogram -Patient instructed that she should take medications with frequency and dosing only as prescribed; Patient should take a total of 225 mg of Venlafaxine when at home starting on 05/23/18 (Patient was instructed she can take 3 pills of 75 mg Venlafaxine daily, or she can take the 150 mg tablet of Venlafaxine that she originally has at home with the new 75 mg tablet prescription daily as long as the doses only add up to 225 mg total per day ) -Patient instructed to go to primary care doctor for routine heart rate and vitals check as outpatient while on Venlafaxine and metoprolol succinate -Patient should continue at [facility] with the [facility] to be assigned an outpatient psychologist/psychiatrist for further emotional and behavioral health supports suspected urinary tract infection Urine with positive bacteria -started bactrim on 05/20/18 in case there is an urinary tract infection; -the urine culture only returned as Lactobacillus but patient concern she may still have urinary symptoms -continue bactrim; Patient should take sulfamethoxazole-trimethoprim (bactrim) every 12 hours with last day as 05/23/18 to finish a course of antibiotic to treat a suspected urinary tract infection History of asthma -Continue Advair Diskus and albuterol p.r.n. Gastroesophageal reflux disease -Continue omeprazole. History of migraines -acetaminophen given in the hospital for headache Irritable bowel syndrome -continue dicyclomine as needed as outpatient at home Deep venous thrombosis prophylaxis. SCDs Full Code Family father Keanu [phone] mother Marino [phone] Discharge diagnosis drug overdose / drug misuse suicidal ideations /depression tachycardia suspected urinary tract infection Discharge Instructions Patient should take medications with frequency and dosing only as prescribed Patient should take a total of 225 mg of Venlafaxine when at home starting on (Patient was instructed she can take 3 pills of 75 mg Venlafaxine daily, or she can take the 150 mg tablet of Venlafaxine that she originally has at home with the new 75 mg tablet prescription daily as long as the doses only add up to 225 mg total per day ) Patient should take sulfamethoxazole-trimethoprim (bactrim) every 12 hours with last day as 05/23/18 to finish a course of antibiotic to treat a suspected urinary tract infection Patient should start new discharge medications of metoprolol succinate 12.5 mg at home starting on 05/23/18 and should have heart rates and blood pressure checked with next primary care clinic visit Primary care appointment 05/26/2018 10:20 AM Saul Rangel MD Department Internal Medicine [facility] Patient should continue at [facility] with the [facility] to be assigned an outpatient psychologist/psychiatrist for further emotional and behavioral health supports Subjective Patient's heart rate generally under 100 beats per minute today but some episode of overnight tachycardia picked up on telemetry monitoring Patient denies palpitations. denies chest pain. denies shortness of breath. denies nausea or abdominal pain. headache from yesterday resolved. reports she is concerned for urinary tract infection and already on bactrim but no acute complaints of dsyuria. no fevers overnight Patient denies ideations of self harm today. We discussed at length the discharge and follow up plans and how she should be taking medications as prescribed at home. Physical Exam 2 Vital Signs (Past 24 Hours): Last Vital Signs Temp 37.4 C 05/22/18 10:58 Pulse 86 05/22/18 06:57 Resp 20 05/22/18 06:57 BP 116/76 05/22/18 06:57 Pulse Ox 98 05/22/18 06:57 Constitutional: WD/WN, vitals as above Eyes: PERRL, conjunctivae normal, anicteric sclerae EOM intact bilaterally ENMT: external ear and nose normal, oropharynx normal Neck: normal visual inspection and trachea midline Respiratory: normal respiratory effort, lungs clear to auscultation Cardiovascular: RRR, no murmur, no edema Gastrointestinal (Abdomen): normal bowel sounds, soft, nontender, no hepatosplenomegaly Musculoskeletal: no cyanosis or clubbing, extremities motor strength 5/5 Head/Neck/Chest: normocephalic and head atraumatic Neurologic: PERRL, EOMI, accommodation nl, no face palsy, no dysarthria CN' s II-XI intact bilaterally Psychiatric: Orientation: alert, oriented x 3 and oriented to person Eye Contact: good eye contact Speech: normal rate/rhythm/volume of speech _ (1) Medication overdose Encounter type: initial encounter Injury intent: intentional self-harm Qualified Code(s): T50.902A - Poisoning by unspecified drugs, medicaments and biological substances, intentional self-harm, initial encounter
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
== END 2018-05-22 14:08 | disposition home or self-care (01) | DRG 918 ==
LOC: ED 01:39 → 2S 04:39 → 1E 04:48 → 2E 15:47

== ENCOUNTER 2020-11-19 12:36 | Inpatient (IN) ==
[2020-11-19] MEDS ORDERED: OXYTOCIN 30 UNITS/500 ML BAG IV PRN ×2 (13:06→20:20)
[2020-11-19] MEDS ORDERED: PENICILLIN G POTASSIUM 6 MU in DEXTROSE 5% 250 ML IV STA (13:08)
[2020-11-19 13:34] LABS: Hematocrit (blood only) 42.9 % (37-47); Hemoglobin 15.6 g/dL (12.0-16.0); Mean Corpuscular Hemoglobin 35.1 pg (25-34); Mean Corpuscular Hgb Conc 36.4 g/dL (32-36); Mean Corpuscular Volume 96.6 fL (80-100); Mean Platelet Volume 10.7 fL (7.4-10.4); Platelet Count 192 K/uL (130-400); RDW Coefficient of Variation 12.8 % (11.5-14.5); RDW Standard Deviation 45.1 fL (36.4-46.3); Red Blood Count 4.44 M/uL (4.2-5.4); White Blood Count 14.89 K/uL (4.8-10.8)
[2020-11-19] MEDS: LACTATED RINGER'S 1,000 ML IV PRN ×3 (13:57→23:48)
[2020-11-19] MEDS ORDERED: ePHEDrine sulfate 50 MG/ML AMP ONE (15:23)
[2020-11-19] MEDS ORDERED: SODIUM CHLORIDE 0.9% INJ 10 ML VIAL ONE (15:23)
[2020-11-19] MEDS ORDERED: BUPIVACAINE 0.25% 30 ML VIAL ONE (15:24)
[2020-11-19] MEDS ORDERED: fentaNYL 2MCG/ML ROPIVACAINE 1.25MG/ML 100 ML BAG EPI ONE (15:24)
[2020-11-19] MEDS ORDERED: fentaNYL citrate 100 MCG/2 ML VIAL ONE (15:24)
--- NOTE | 2020-11-19 15:29 | History & Physical Report ---
Date of Service November 19, 2020 Assessment & Plan (1) with 36 completed weeks gestation: (2) PROM (premature rupture of membranes): Admission and Anticipated Discharge Date Admission Date: November 19, 2020 Admit, allow expectant management. Starting to contract. pcn for GBS. pit augmentation if needed. fetus category one. Anticipate . History of Present Illness Chief Complaint: rom Primary Care Provider: Saul Rangel MD Late entry because of patient care. Patient is a 20yowf with iup at 36 6/7 weeks who presents to labor and delivery complaining of gross rom at approximately 12:15, large gushing , clear. no vb. +fm . Has felt some menstrual like cramping which is getting worse. Patient's complicated by COVID 08/12. Patient with congenital bicuspid aortic valve. 10/11 maternal echo normal. echo recommend f/u pp for VSD. hx of HSV, asymptomatic, GBS positive urine. labs--A+/ab-/ri/rprnr/hepb-/hiv-/gc/ct neg/ gbs positive urine/low risk panorama/cf/sma neg/ declined afp. Patient has rash allergy to Keflex but notes is ok with PCN. Allergies Allergy/AdvReac Type Severity Reaction Status Date / Time cephalexin Allergy Intermediate Rash Verified 11/15/20 13:52 metronidazole Allergy tongue Verified 11/15/20 13:52 swelling Home Medications Medication Instructions Recorded Confirmed Type omeprazole 40 mg PO DAILY 05/20/18 11/19/20 History budesonide-formoterol [Symbicort] 2 puff INHALATION BID 06/29/19 11/19/20 History venlafaxine 300 mg PO DAILY 06/29/19 11/19/20 History prenat.vits,renetta,[id number] 1 tab PO DAILY 02/26/20 11/19/20 History ondansetron HCl 4 mg PO Q6 PRN 03/25/20 11/19/20 History valacyclovir 500 mg tablet 500 mg PO BID #60 tab 11/07/20 11/19/20 Rx albuterol 2 puff DAILY PRN 11/19/20 11/19/20 History Patient History Medical History Anxiety Congenital bicuspid aortic valve Herpes genitalis IBS (irritable bowel syndrome) Medication overdose Mononucleosis Suicide attempt Varicella vaccination Surgical History No pertinent past surgical history S/P breast lumpectomy Family History Mother Breast cancer Other Cancer Diabetes Lung cancer Denies family history of Ovarian cancer Colorectal cancer Social History Smoking Status: Never smoker Hx Alcohol Use: No Hx Substance Use: No Preferred Language: Trinidadian Communication Ability: Effective Transportation Officer Required: No Beliefs That Will Affect Care: None marital status: Single marital status details: Sarabjit Cuello (26) [phone] Current Living Situation: Significant Other Current Living Situation Comment: lives with fob, guinea pigs, cat-fob to change litter current occupational status: employed current occupation: [employer] - [employer] Feels Safe at Home: Yes Safety Concerns: Feels Safe At This Time Assistive Devices: Contacts OB History g1--03/12, 6 week sab g2--present [employer]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 Results & Data ([facility]) Vital Signs (Past 12 Hours) Vital Signs Temp Pulse Resp BP 11/19/20 13:26 36.9 C 16 11/19/20 12:59 106 H 134/88 Code Status & VTE Plan VTE Prophylaxis Plan VTE Prophylaxis will be ordered: No Coding Level of Care Code None Diagnoses with 36 completed weeks gestation Z3A.36 PROM (premature rupture of membranes) O42.90
--- NOTE | 2020-11-19 16:42 | Anesthesiology Consultation ---
Date of Service November 19, 2020 Assessment & Plan Chart Review Chart Review: Acceptable Risk for Surgery, Patient NOT seen in Pre Admission Testing and Acceptable Risk for Labor Epidural Consults Requested none ASA ASA2 Proposed Anesthesia Anesthesia Type: Labor Epidural and CSE Risk / Benefits Reviewed With: PT / POA / Parent / Guardian, Accepts Plan and Informed Consent Obtained Additional Comments: pt. had covid in july History Height/Weight Height: 5 ft 5.5 in Weight: 86.636 kg Allergies Allergy/AdvReac Type Severity Reaction Status Date / Time cephalexin Allergy Intermediate Rash Verified 11/15/20 13:52 metronidazole Allergy tongue Verified 11/15/20 13:52 swelling Medications Home Medications Medication Instructions Recorded Confirmed Last Taken omeprazole 40 mg PO DAILY 05/20/18 11/19/20 11/19/20 12:00 budesonide-formoterol [Symbicort] 2 puff INHALATION BID 06/29/19 11/19/20 11/18/20 09:00 venlafaxine 300 mg PO DAILY 06/29/19 11/19/20 11/19/20 12:35 prenat.vits,renetta,[id number] 1 tab PO DAILY 02/26/20 11/19/20 11/19/20 08:00 ondansetron HCl 4 mg PO Q6 PRN 03/25/20 11/19/20 11/17/20 valacyclovir 500 mg tablet 500 mg PO BID #60 tab 11/07/20 11/19/20 11/19/20 09:00 albuterol 2 puff DAILY PRN 11/19/20 11/19/20 10/15/20 Active Medications Generic Name Dose Route Start Last Admin Trade Name Freq PRN Reason Stop Dose Admin Lactated Ringer's 1,000 mls @ 125 mls/hr 11/19/20 13:06 11/19/20 16:32 Lr IV 11/21/20 13:05 125 mls/hr .Q8H PRN Administration L&D Protocol Protocol NPO Date Last Intake of Fluids: 11/19/20 Time Last Intake of Fluids: 16:00 Date Last Intake of Solids: 11/19/20 Time Last Intake of Solids: 12:45 Past Medical History Medical History Anxiety Congenital bicuspid aortic valve Herpes genitalis IBS (irritable bowel syndrome) Medication overdose Mononucleosis Suicide attempt Varicella vaccination Exercise / Class Metabolic Activity II 4-5 Yardwork/Stairs/Walk up hill Past Family History Family History Mother Breast cancer Other Cancer Diabetes Lung cancer Denies family history of Ovarian cancer Colorectal cancer Past Surgical History Surgical History No pertinent past surgical history S/P breast lumpectomy Past Anesthesia History No Hx of Anesthesia Complications and No Family Hx of Anesthesia Complications History of PONV No Hx of PONV and No Hx of Motion Sickness Social History Smoking Status: Never smoker Hx Alcohol Use: No Hx Substance Use: No Physical Exam Vital Signs Last Vital Signs Temp 36.7 C 11/19/20 15:07 Pulse 97 H 11/19/20 16:34 Resp 16 11/19/20 13:26 BP 131/91 11/19/20 16:07 Pulse Ox 97 11/19/20 16:34 Constitutional + obese ENMT Mouth: no dentition abnormality Thyromental Distance: < 3.5 Finger Breadths Mallampati Class: II Neck normal visual inspection and trachea midline; neck extension not limited Respiratory normal respiratory effort Auscultation: lungs clear to auscultation bilaterally Cardiovascular Rate/Rhythm: regular rate and regular rhythm Heart Sounds: no murmur Vessels: no carotid bruit Musculoskeletal Spine: lumbar spine normal to inspection; normal cervical ROM Neurologic moves all extremities Motor/Sensory: no sensory deficit Psychiatric Orientation: alert and oriented x 3 Testing Laboratory Results 11/19/20 13:20
[2020-11-19] MEDS ORDERED: ONDANSETRON INJ 2 MG/ML 2 ML VIAL IV PRN (17:04)
[2020-11-19] MEDS ORDERED: diphenhydrAMINE 50 MG/ML VIAL IV PRN (17:04)
[2020-11-19] MEDS ORDERED: NALOXONE HCL 1 MG in SODIUM CHLORIDE 0.9% 1000ML 1,000 ML IV PRN (17:04)
[2020-11-19] MEDS ORDERED: fentaNYL 2MCG/ML ROPIVACAINE 1.25MG/ML 100 ML BAG EPI PRN (17:04)
[2020-11-19] MEDS ORDERED: PROMETHAZINE HCL 25 MG in SODIUM CHLORIDE 0.9% 50 ML IV PRN (17:04)
[2020-11-19] MEDS ORDERED: ePHEDrine sulfate 50 MG/ML AMP IV PRN (17:04)
[2020-11-19] MEDS ORDERED: NALOXONE HCL 0.4 MG/1 ML VIAL/CARP IV PRN (17:04)
--- NOTE | 2020-11-19 18:07 | Labor Progress Brief Note ---
Date of Service November 19, 2020 Subjective comfortable with epidural Assessment & Plan (1) PROM (premature rupture of membranes): (2) with 36 completed weeks gestation: Admission and Anticipated Discharge Date Admission Date: November 19, 2020 Making change. Will continue expectant management. Fetus category one Physical Exam Constitutional: WD/WN, vitals as above Psychiatric: A+Ox3, euthymic affect Genitourinary: cx--3/90/-1 toco--q3-5 efm--130 with mod variability, accels to 160s, no decels Results & Data ([facility]) Vital Signs (Past 12 Hours) Vital Signs Temp Pulse Resp BP Pulse Ox 11/19/20 17:59 100 H 97 11/19/20 17:57 90 133/82 11/19/20 17:54 95 H 97 11/19/20 17:49 104 H 97 11/19/20 17:44 103 H 98 11/19/20 17:42 100 H 126/81 11/19/20 17:39 97 H 98 11/19/20 17:34 108 H 99 11/19/20 17:29 106 H 98 11/19/20 17:27 37.1 C 16 11/19/20 17:24 113 H 93 11/19/20 17:22 111 H 129/83 11/19/20 17:19 115 H 96 11/19/20 17:18 113 H 128/83 11/19/20 17:16 117 H 91 11/19/20 17:14 123 H 153/69 H 97 11/19/20 17:09 108 H 97 11/19/20 17:08 104 H 118/76 11/19/20 17:06 100 H 122/78 11/19/20 17:04 101 H 118/74 96 11/19/20 17:03 93 H 127/74 11/19/20 17:00 16 11/19/20 16:59 98 H 121/79 96 11/19/20 16:54 98 H 96 11/19/20 16:49 120 H 97 11/19/20 16:44 113 H 98 11/19/20 16:39 104 H 96 11/19/20 16:34 97 H 97 11/19/20 16:29 96 H 97 11/19/20 16:24 88 97 11/19/20 16:19 94 H 97 06/29/21 16:14 89 97 11/19/20 16:09 85 97 11/19/20 16:07 85 131/91 11/19/20 16:06 86 140/91 11/19/20 16:04 97 H 98 11/19/20 15:07 36.7 C 11/19/20 13:26 36.9 C 16 11/19/20 12:59 106 H 134/88 Coding Level of Care Code None Diagnoses PROM (premature rupture of membranes) O42.90 with 36 completed weeks gestation Z3A.36
[2020-11-19] MEDS: PENICILLIN G POTASSIUM 3 MU in DEXTROSE 5% 100 ML IV PRN ×2 (18:12→22:07)
--- NOTE | 2020-11-19 20:20 | Labor Progress Brief Note ---
Date of Service November 19, 2020 Subjective comfortable Assessment & Plan (1) PROM (premature rupture of membranes): Admission and Anticipated Discharge Date Admission Date: November 19, 2020 rom for 8 hours, no change since last exam. Start pit dec. fetus category one. Physical Exam Constitutional: WD/WN, vitals as above Psychiatric: A+Ox3, euthymic affect Genitourinary: cx--unchanged toco--q 3-4min efm--130s with mod variability, accels to 150s, no decels Results & Data ([facility]) Vital Signs (Past 12 Hours) Vital Signs Temp Pulse Resp BP Pulse Ox 11/19/20 20:14 79 100 11/19/20 20:12 84 134/86 11/19/20 20:09 83 97 11/19/20 20:04 77 99 11/19/20 19:59 83 98 11/19/20 19:57 81 130/75 11/19/20 19:54 85 93 11/19/20 19:49 82 94 11/19/20 19:44 80 97 11/19/20 19:42 77 125/77 11/19/20 19:39 81 94 11/19/20 19:34 82 94 11/19/20 19:30 16 11/19/20 19:29 80 96 11/19/20 19:27 83 128/82 11/19/20 19:24 85 95 11/19/20 19:19 82 95 11/19/20 19:14 86 95 11/19/20 19:12 83 122/73 11/19/20 19:09 89 96 11/19/20 19:04 81 96 11/19/20 19:00 16 11/19/20 18:59 80 97 11/19/20 18:58 78 131/86 11/19/20 18:54 77 100 11/19/20 18:49 36.9 C 85 99 11/19/20 18:44 86 99 11/19/20 18:42 94 H 118/88 11/19/20 18:39 95 H 100 11/19/20 18:34 83 99 11/19/20 18:30 18 11/19/20 18:29 103 H 99 11/19/20 18:28 109 H 118/81 11/19/20 18:24 118 H 100 11/19/20 18:19 104 H 95 11/19/20 18:14 82 98 11/19/20 18:13 108 H 126/97 11/19/20 18:09 87 99 11/19/20 18:04 95 H 99 11/19/20 18:00 18 11/19/20 17:59 100 H 97 11/19/20 17:57 90 133/82 11/19/20 17:54 95 H 97 11/19/20 17:49 104 H 97 11/19/20 17:44 103 H 98 11/19/20 17:42 100 H 126/81 11/19/20 17:39 97 H 98 11/19/20 17:34 108 H 99 11/19/20 17:30 16 11/19/20 17:29 106 H 98 11/19/20 17:27 37.1 C 16 11/19/20 17:24 113 H 93 11/19/20 17:22 111 H 129/83 11/19/20 17:19 115 H 96 11/19/20 17:18 113 H 128/83 11/19/20 17:16 117 H 91 11/19/20 17:14 123 H 153/69 H 97 11/19/20 17:09 108 H 97 11/19/20 17:08 104 H 118/76 11/19/20 17:06 100 H 122/78 11/19/20 17:04 101 H 118/74 96 11/19/20 17:03 93 H 127/74 11/19/20 17:00 16 11/19/20 16:59 98 H 121/79 96 11/19/20 16:54 98 H 96 11/19/20 16:49 120 H 97 11/19/20 16:44 113 H 98 11/19/20 16:39 104 H 96 11/19/20 16:34 97 H 97 11/19/20 16:29 96 H 97 11/19/20 16:24 88 97 11/19/20 16:19 94 H 97 11/19/20 16:14 89 97 11/19/20 16:09 85 97 11/19/20 16:07 85 131/91 11/19/20 16:06 86 140/91 11/19/20 16:04 97 H 98 11/19/20 15:07 36.7 C 11/19/20 13:26 36.9 C 16 11/19/20 12:59 106 H 134/88 Coding Level of Care Code None Diagnoses PROM (premature rupture of membranes) O42.90
--- NOTE | 2020-11-20 00:17 | Labor Progress Brief Note ---
Date of Service November 20, 2020 Subjective some pressure discomfort. Assessment & Plan (1) PROM (premature rupture of membranes): (2) with 36 completed weeks gestation: Admission and Anticipated Discharge Date Admission Date: November 19, 2020 ant lip and much lower. variable/early better with position change, oxygen and pit now off. good variability. Anticipate . Will continue to monitor closely. Physical Exam Constitutional: WD/WN, vitals as above Psychiatric: A+Ox3, euthymic affect Genitourinary: cx--ant lip/100/0 toco--q2-3, pit now off. had an episode of tachysystole and some variables noted but ctx have spaced since pit off. efm--145 with mod variability, early /variable with contractions rapid change from 4cm to ant lip in last hour. position change, oxygen on and pit off. Results & Data ([facility]) Vital Signs (Past 12 Hours) Vital Signs Temp Pulse Resp BP Pulse Ox 11/20/20 00:07 93 H 100 11/20/20 00:03 85 131/85 11/20/20 00:02 86 100 11/19/20 23:57 82 100 11/19/20 23:52 86 100 11/19/20 23:49 81 91 11/19/20 23:48 80 127/86 11/19/20 23:47 81 100 11/19/20 23:42 75 100 11/19/20 23:37 85 100 11/19/20 23:33 95 H 125/87 11/19/20 23:32 88 100 11/19/20 23:27 85 98 11/19/20 23:22 83 99 11/19/20 23:18 89 127/84 11/19/20 23:17 92 H 99 11/19/20 23:12 83 99 11/19/20 23:07 70 98 11/19/20 23:04 87 136/86 11/19/20 23:02 86 99 11/19/20 23:00 16 11/19/20 22:58 94 11/19/20 22:57 86 94 11/19/20 22:52 77 95 11/19/20 22:48 76 130/85 11/19/20 22:47 76 97 11/19/20 22:42 88 99 11/19/20 22:37 76 97 11/19/20 22:34 76 129/85 11/19/20 22:32 88 97 11/19/20 22:30 18 11/19/20 22:27 76 99 11/19/20 22:22 79 97 11/19/20 22:18 80 139/89 11/19/20 22:17 81 97 11/19/20 22:12 82 98 11/19/20 22:07 84 97 11/19/20 22:04 86 117/90 11/19/20 22:02 76 97 11/19/20 22:00 16 11/19/20 21:57 77 97 11/19/20 21:52 75 97 11/19/20 21:49 91 H 129/89 11/19/20 21:47 91 H 98 11/19/20 21:42 86 97 11/19/20 21:37 82 97 11/19/20 21:33 81 128/87 11/19/20 21:32 84 96 11/19/20 21:30 16 11/19/20 21:27 86 97 11/19/20 21:22 76 98 11/19/20 21:19 79 126/88 11/19/20 21:17 82 98 11/19/20 21:15 37.1 C 11/19/20 21:12 91 H 98 11/19/20 21:07 79 98 11/19/20 21:03 81 130/82 11/19/20 21:02 82 97 11/19/20 21:00 16 11/19/20 20:57 78 98 11/19/20 20:55 77 129/77 11/19/20 20:52 83 98 11/19/20 20:48 74 152/104 H 11/19/20 20:47 83 99 11/19/20 20:42 74 98 11/19/20 20:37 83 98 11/19/20 20:32 79 100 11/19/20 20:30 18 11/19/20 20:29 81 100 11/19/20 20:27 73 135/88 11/19/20 20:24 90 98 11/19/20 20:19 102 H 93 11/19/20 20:14 79 100 11/19/20 20:12 84 134/86 11/19/20 20:09 83 97 11/19/20 20:04 77 99 11/19/20 20:00 16 11/19/20 19:59 83 98 11/19/20 19:57 81 130/75 11/19/20 19:54 85 93 11/19/20 19:49 82 94 11/19/20 19:44 80 97 11/19/20 19:42 77 125/77 11/19/20 19:39 81 94 11/19/20 19:34 82 94 11/19/20 19:30 16 11/19/20 19:29 80 96 11/19/20 19:27 83 128/82 11/19/20 19:24 85 95 11/19/20 19:19 82 95 11/19/20 19:14 86 95 11/19/20 19:12 83 122/73 11/19/20 19:09 89 96 11/19/20 19:04 81 96 11/19/20 19:00 16 11/19/20 18:59 80 97 11/19/20 18:58 78 131/86 11/19/20 18:54 77 100 11/19/20 18:49 36.9 C 85 99 11/19/20 18:44 86 99 11/19/20 18:42 94 H 118/88 11/19/20 18:39 95 H 100 11/19/20 18:34 83 99 11/19/20 18:30 18 11/19/20 18:29 103 H 99 11/19/20 18:28 109 H 118/81 11/19/20 18:24 118 H 100 11/19/20 18:19 104 H 95 11/19/20 18:14 82 98 11/19/20 18:13 108 H 126/97 11/19/20 18:09 87 99 11/19/20 18:04 95 H 99 11/19/20 18:00 18 11/19/20 17:59 100 H 97 11/19/20 17:57 90 133/82 11/19/20 17:54 95 H 97 11/19/20 17:49 104 H 97 11/19/20 17:44 103 H 98 11/19/20 17:42 100 H 126/81 11/19/20 17:39 97 H 98 11/19/20 17:34 108 H 99 11/19/20 17:30 16 11/19/20 17:29 106 H 98 11/19/20 17:27 37.1 C 16 11/19/20 17:24 113 H 93 11/19/20 17:22 111 H 129/83 11/19/20 17:19 115 H 96 11/19/20 17:18 113 H 128/83 11/19/20 17:16 117 H 91 11/19/20 17:14 123 H 153/69 H 97 11/19/20 17:09 108 H 97 11/19/20 17:08 104 H 118/76 11/19/20 17:06 100 H 122/78 11/19/20 17:04 101 H 118/74 96 11/19/20 17:03 93 H 127/74 11/19/20 17:00 16 11/19/20 16:59 98 H 121/79 96 11/19/20 16:54 98 H 96 11/19/20 16:49 120 H 97 11/19/20 16:44 113 H 98 11/19/20 16:39 104 H 96 11/19/20 16:34 97 H 97 11/19/20 16:29 96 H 97 11/19/20 16:24 88 97 11/19/20 16:19 94 H 97 11/19/20 16:14 89 97 11/19/20 16:09 85 97 11/19/20 16:07 85 131/91 11/19/20 16:06 86 140/91 11/19/20 16:04 97 H 98 11/19/20 15:07 36.7 C 11/19/20 13:26 36.9 C 16 11/19/20 12:59 106 H 134/88 Coding Level of Care Code None Diagnoses PROM (premature rupture of membranes) O42.90 with 36 completed weeks gestation Z3A.36
--- NOTE | 2020-11-20 00:32 | Labor Progress Brief Note ---
Date of Service November 20, 2020 Subjective comfortable Assessment & Plan (1) PROM (premature rupture of membranes): Admission and Anticipated Discharge Date Admission Date: November 19, 2020 begin second stage. fetus looking reassuring. Physical Exam Constitutional: WD/WN, vitals as above Psychiatric: A+Ox3, euthymic affect Genitourinary: cx--c/c/0 toco--q2-4min efm--140s with mod variability, accels to 170s, variable/early with contraction Results & Data ([facility]) Vital Signs (Past 12 Hours) Vital Signs Temp Pulse Resp BP Pulse Ox 11/20/20 00:27 114 H 100 11/20/20 00:22 88 100 11/20/20 00:18 93 H 128/78 11/20/20 00:17 86 100 11/20/20 00:12 89 100 11/20/20 00:07 93 H 100 11/20/20 00:03 85 131/85 11/20/20 00:02 86 100 11/19/20 23:57 82 100 11/19/20 23:52 86 100 11/19/20 23:49 81 91 11/19/20 23:48 80 127/86 11/19/20 23:47 81 100 11/19/20 23:42 75 100 11/19/20 23:37 85 100 11/19/20 23:33 95 H 125/87 11/19/20 23:32 88 100 11/19/20 23:27 85 98 11/19/20 23:22 83 99 11/19/20 23:18 89 127/84 11/19/20 23:17 92 H 99 11/19/20 23:12 83 99 11/19/20 23:07 70 98 11/19/20 23:04 87 136/86 11/19/20 23:02 86 99 11/19/20 23:00 16 11/19/20 22:58 94 11/19/20 22:57 86 94 11/19/20 22:52 77 95 11/19/20 22:48 76 130/85 11/19/20 22:47 76 97 11/19/20 22:42 88 99 11/19/20 22:37 76 97 11/19/20 22:34 76 129/85 11/19/20 22:32 88 97 11/19/20 22:30 18 11/19/20 22:27 76 99 11/19/20 22:22 79 97 11/19/20 22:18 80 139/89 11/19/20 22:17 81 97 11/19/20 22:12 82 98 11/19/20 22:07 84 97 11/19/20 22:04 86 117/90 11/19/20 22:02 76 97 11/19/20 22:00 16 11/19/20 21:57 77 97 11/19/20 21:52 75 97 11/19/20 21:49 91 H 129/89 11/19/20 21:47 91 H 98 11/19/20 21:42 86 97 11/19/20 21:37 82 97 11/19/20 21:33 81 128/87 11/19/20 21:32 84 96 11/19/20 21:30 16 11/19/20 21:27 86 97 11/19/20 21:22 76 98 11/19/20 21:19 79 126/88 11/19/20 21:17 82 98 11/19/20 21:15 37.1 C 11/19/20 21:12 91 H 98 11/19/20 21:07 79 98 11/19/20 21:03 81 130/82 11/19/20 21:02 82 97 11/19/20 21:00 16 11/19/20 20:57 78 98 11/19/20 20:55 77 129/77 11/19/20 20:52 83 98 11/19/20 20:48 74 152/104 H 11/19/20 20:47 83 99 11/19/20 20:42 74 98 11/19/20 20:37 83 98 11/19/20 20:32 79 100 11/19/20 20:30 18 11/19/20 20:29 81 100 11/19/20 20:27 73 135/88 11/19/20 20:24 90 98 11/19/20 20:19 102 H 93 11/19/20 20:14 79 100 11/19/20 20:12 84 134/86 11/19/20 20:09 83 97 11/19/20 20:04 77 99 11/19/20 20:00 16 11/19/20 19:59 83 98 11/19/20 19:57 81 130/75 11/19/20 19:54 85 93 11/19/20 19:49 82 94 11/19/20 19:44 80 97 11/19/20 19:42 77 125/77 11/19/20 19:39 81 94 11/19/20 19:34 82 94 11/19/20 19:30 16 11/19/20 19:29 80 96 11/19/20 19:27 83 128/82 11/19/20 19:24 85 95 11/19/20 19:19 82 95 11/19/20 19:14 86 95 11/19/20 19:12 83 122/73 11/19/20 19:09 89 96 11/19/20 19:04 81 96 11/19/20 19:00 16 11/19/20 18:59 80 97 11/19/20 18:58 78 131/86 11/19/20 18:54 77 100 11/19/20 18:49 36.9 C 85 99 11/19/20 18:44 86 99 11/19/20 18:42 94 H 118/88 11/19/20 18:39 95 H 100 11/19/20 18:34 83 99 11/19/20 18:30 18 11/19/20 18:29 103 H 99 11/19/20 18:28 109 H 118/81 11/19/20 18:24 118 H 100 11/19/20 18:19 104 H 95 11/19/20 18:14 82 98 11/19/20 18:13 108 H 126/97 11/19/20 18:09 87 99 11/19/20 18:04 95 H 99 11/19/20 18:00 18 11/19/20 17:59 100 H 97 11/19/20 17:57 90 133/82 11/19/20 17:54 95 H 97 11/19/20 17:49 104 H 97 11/19/20 17:44 103 H 98 11/19/20 17:42 100 H 126/81 11/19/20 17:39 97 H 98 11/19/20 17:34 108 H 99 11/19/20 17:30 16 11/19/20 17:29 106 H 98 11/19/20 17:27 37.1 C 16 11/19/20 17:24 113 H 93 11/19/20 17:22 111 H 129/83 11/19/20 17:19 115 H 96 11/19/20 17:18 113 H 128/83 11/19/20 17:16 117 H 91 11/19/20 17:14 123 H 153/69 H 97 11/19/20 17:09 108 H 97 11/19/20 17:08 104 H 118/76 11/19/20 17:06 100 H 122/78 11/19/20 17:04 101 H 118/74 96 11/19/20 17:03 93 H 127/74 11/19/20 17:00 16 11/19/20 16:59 98 H 121/79 96 11/19/20 16:54 98 H 96 11/19/20 16:49 120 H 97 11/19/20 16:44 113 H 98 11/19/20 16:39 104 H 96 11/19/20 16:34 97 H 97 11/19/20 16:29 96 H 97 11/19/20 16:24 88 97 11/19/20 16:19 94 H 97 11/19/20 16:14 89 97 11/19/20 16:09 85 97 11/19/20 16:07 85 131/91 11/19/20 16:06 86 140/91 11/19/20 16:04 97 H 98 11/19/20 15:07 36.7 C 11/19/20 13:26 36.9 C 16 11/19/20 12:59 106 H 134/88 Coding Level of Care Code None Diagnoses PROM (premature rupture of membranes) O42.90
--- NOTE | 2020-11-20 01:31 | Delivery Summary ---
Vaginal Delivery Summary Date of Service November 20, 2020 Pre-operative Diagnosis: at 36 6/7 prom Post-operative Diagnosis: same Procedure: epidural pitocin augmentation bilateral labial laceration with repair EBL: 300cc Anesthesia: epidural Procedure: The patient pushed for about 30 min to deliver a viable male infant in tao position. The nose and mouth were bulb suctioned on the perineum and the rest of the infant was then delivered without difficulty. The nose and mouth were again bulb suctioned and the infant was placed in the maternal abdomen for drying and attention. Cord was clamped and cut at about one minute of life. Cord blood and gas segment obtained. Placenta delivered spontaneous, intact with a three vessel cord. Cervix/sulci/rectum were intact. A bilateral labial lacerations were repaired in the normal standard fashion. Hemostasis obtained with dilute pitocin and fundal massage. Apgars were 5/8. Mother and baby doing well at the end of the delivery. FHT showed variables with pushing but good recovery, accels prior to pushing. Baby required some resuscitation but fhr always >100 and pinked up quickly. Vaginal Delivery Summary and 1st Degree LAC (bilateral labial lacs) [facility] Vaginal Delivery Charge Delivery Type Details: and 1st Degree LAC (bilateral labial lacs)
[2020-11-20] MEDS ORDERED: oxyCODONE/ACETAMINOPHEN 5mg/325mg TAB PO PRN (01:33)
[2020-11-20] MEDS ORDERED: ACETAMINOPHEN 325 MG TAB PO PRN (01:33)
[2020-11-20] MEDS ORDERED: SUPERCREAM 0.870% 15 GM JAR EXT PRN (01:35)
[2020-11-20] MEDS ORDERED: BENZOCAINE 20% AER SPR 82.5 GM CAN EXT PRN (01:35)
[2020-11-20] MEDS ORDERED: DIPHTHERIA/TETANUS/PERTUSSIS 0.5 ML SYR/VIAL IM ONE (01:35)
[2020-11-20] MEDS ORDERED: bisacodyL 10 MG SUPP PR PRN (01:35)
[2020-11-20] MEDS ORDERED: OXYTOCIN 30 UNITS/500 ML BAG IV PRN (01:35)
[2020-11-20] MEDS ORDERED: HYDROCORTISONE ACETATE 25 MG SUPP PR PRN (01:35)
[2020-11-20] MEDS ORDERED: ALBUTEROL HFA 8 GM INHALER INH PRN (01:40)
[2020-11-20 01:48] LABS: Base Excess Cord Arterial Bld -4.7 mEq/L (-9-1.8); CO2 Cord Arterial Blood 47 mmHg (39.1-73.5); HCO3 Cord Arterial Blood 22 mmol/L (19.7-28.5); Oxygen Sat Cord Arterial Blood 76.7 % (<60); PO2 Cord Arterial Blood 38 mmHg (4.1-31.7); pH Cord Arterial Blood 7.29 (7.1-7.38)
[2020-11-20 01:50] LABS: Base Excess Cord Venous Blood -3.1 mEq/L (-7.7-1.9); Cord Venous Blood HCO3 23 mmol/L (18.4-26.8); Cord Venous Blood PCO2 46 mmHg (30.4-57.2); Cord Venous Blood PO2 34 mmHg (14.1-43.3); Cord Venous Blood pH 7.32 (7.20-7.44)
[2020-11-20] MEDS: IBUPROFEN 600 MG TAB PO PRN ×3 (05:25→20:22)
[2020-11-20] MEDS: DOCUSATE SODIUM 100 MG CAP PO SCH ×2 (07:48→20:22)
[2020-11-20] MEDS: PRENATAL VITAMIN 1 TAB PO SCH (07:48)
[2020-11-20] MEDS: FLUTICASONE/VILANTEROL 200/25MCG 14 PUFFS/INHALER INH SCH (07:49)
[2020-11-20] MEDS ORDERED: VENLAFAXINE HCL XR 150 MG CAPXR PO SCH (09:00)
--- NOTE | 2020-11-20 09:32 | Anesthesia Procedure Note ---
Date of Service November 20, 2020 Anesthesia Post Epidural Note Vital Signs Vital Signs: Temp Pulse Resp BP Pulse Ox 36.8 C 77 18 122/83 99 11/20/20 07:30 11/20/20 07:30 11/20/20 07:30 11/20/20 07:30 11/20/20 07:30 Pain Intensity Bilateral Back: Pain Intensity: 6 Notes Mental Status: alert / awake / arousable Patient Amnestic to Procedure: No Nausea / Vomiting: adequately controlled Pain: adequately controlled Airway Patency, RR, SpO2: stable & adequate BP & HR: stable & adequate Hydration State: stable & adequate Neuraxial Anesthesia: was administered and sensory block is resolving Anesthetic Complications: no major complications apparent and Pt Satisfied with anesthetic care Epidural: Removed without complications and With tip intact
[2020-11-20] MEDS ORDERED: Nursing to Pharmacy Communication SCH (09:45)
[2020-11-20] MEDS: VENLAFAXINE HCL XR 150 MG CAPXR PO SCH (13:26)
[2020-11-21] MEDS: IBUPROFEN 600 MG TAB PO PRN ×5 (00:30→23:47)
[2020-11-21 06:36] LABS: Hematocrit (blood only) 36.3 % (37-47); Hemoglobin 13.3 g/dL (12.0-16.0)
--- NOTE | 2020-11-21 06:44 | Obstetrical Progress Note ---
Date of Service <Nathaly Mccoy DO - Last Filed: 11/21/20 07:46> November 21, 2020 Assessment & Plan <Nathaly Mccoy DO - Last Filed: 11/21/20 07:46> (1) Encounter for care and examination after delivery: 20 yo female Hx bicuspid aortic valve, GBS adequately treated, COVID 19 during ; PPD # 1 without complaints from OB perspective. Murmur noted on exam, not abnormal given Hx bicuspid AV. Still working on ; discharge tomorrow with emphasis today on bonding and working on technique. Subjective <Nathaly Mccoy DO - Last Filed: 11/21/20 07:46> 20 yo female Hx bicuspid aortic valve, GBS adequately treated, COVID 19 during ; PPD # 1 following vaginal delivery after PROM at 37 weeks; doing well this AM; mild cramping; voiding; tolerating meals overnight, able to ambulate some within the room. Improvement in spotting. , still working on it. Review of Systems Constitutional: denies fever, chills, sweats, headache Respiratory: denies SOB, difficulty breathing Cardiac: denies CP, chest palpitations, chest pressure Breast: denies breast pain : denies dysuria Physical Exam <Nathaly Mccoy DO - Last Filed: 11/21/20 07:46> General: patient is alert and oriented, in NAD Cardiac: +S1/S2, systolic murmur best heard over RUSB (Hx bicuspid AV) Respiratory: lungs CTA b/l, anteriorly and posteriorly, no wheezes rales or rhonchi, no increased work of breathing, symmetric chest rise, no respiratory distress Abdomen: soft, NT, +bowel sounds Uterus: uterine fundus firm Lower Extremities: no LE edema or swelling, no deep calf pain, Marjorie's sign negative b/l Results & Data ([facility]) <Nathaly Mccoy DO - Last Filed: 11/21/20 07:46> Vital Signs (Past 12 Hours) Vital Signs Temp Pulse Pulse Resp BP BP Pulse Ox 11/20/20 23:00 36.9 C 61 20 129/85 97 11/20/20 19:55 37.0 C 79 20 134/88 98 <Ema Salamanca MD, FACOG - Last Filed: 11/21/20 07:59> Co-Signing Physician Notes Resident Physician Supervision Note: I was present with Dr. Salamanca during the history and exam. I discussed the case with the resident and agree with the findings and plan as documented in the note. Any exceptions or clarifications are listed here: [None] Documented By: Ema Salamanca MD, FACOG Resident Activity Tracking <Nathaly Mccoy, DO - Last Filed: 11/21/20 07:46> Resident Involvement: Resident Care Provided Care Provided: OB Delivery
[2020-11-21] MEDS: PRENATAL VITAMIN 1 TAB PO SCH (08:53)
[2020-11-21] MEDS: DOCUSATE SODIUM 100 MG CAP PO SCH ×2 (08:53→21:11)
[2020-11-21] MEDS: VENLAFAXINE HCL XR 150 MG CAPXR PO SCH (16:36)
[2020-11-21] MEDS ORDERED: bisacodyL 5 MG TABEC PO SCH (20:00)
--- NOTE | 2020-11-22 05:53 | Obstetrical Progress Note ---
Date of Service <Nathaly Cabreraxu - Last Filed: 11/22/20 06:37> November 22, 2020 Assessment & Plan <Nathaly Mccoy - Last Filed: 11/22/20 06:37> (1) Encounter for care and examination after delivery: 20 yo female Hx bicuspid aortic valve, GBS adequately treated, COVID 19 during ; PPD # 2 without complaints from OB perspective. Murmur noted on exam, not abnormal given Hx bicuspid AV. Discharge today. All patient q uestions answered and discharge instructions reviewed. <Teresa Nath MD, FACOG - Last Filed: 11/22/20 07:17> Day #:: 2 Subjective <Nathaly Darius, - Last Filed: 11/22/20 06:37> 20 yo female Hx bicuspid aortic valve, GBS adequately treated, COVID 19 during ; PPD # 2 following vaginal delivery after PROM at 37 weeks; doing well this AM; voiding and ambulating, , tolerating meals. Review of Systems Constitutional: denies fever, chills, sweats, headache Respiratory: denies SOB, difficulty breathing Cardiac: denies CP, chest palpitations, chest pressure Breast: denies breast pain : denies dysuria Physical Exam <Nathaly Cabreraxu - Last Filed: 11/22/20 06:37> General: patient is alert and oriented, in NAD Cardiac: +S1/S2, systolic murmur best heard over RUSB (Hx bicuspid AV) Respiratory: lungs CTA b/l, anteriorly and posteriorly, no wheezes rales or rhonchi, no increased work of breathing, symmetric chest rise, no respiratory distress Abdomen: soft, NT, +bowel sounds Uterus: uterine fundus firm and palpable below the umbilicus Lower Extremities: no LE edema or swelling, no deep calf pain, Marjorie's sign negative b/l Results & Data ([facility]) <Nathalykarl Mccoy DO - Last Filed: 11/22/20 06:37> Vital Signs (Past 12 Hours) Vital Signs Temp Pulse Resp BP Pulse Ox 11/21/20 23:17 37.1 C 72 16 126/85 99 11/21/20 19:14 37.3 C 86 16 125/85 97 <Teresa Nath MD, FACOG - Last Filed: 11/22/20 07:17> Co-Signing Physician Notes Resident Physician Supervision Note: I was present with Dr. Mccoy during the history and exam. I discussed the case with the resident and agree with the findings and plan as documented in the note. Any exceptions or clarifications are listed here: stable, ready for d/c home, ff at u, nt, ext nt calves. instructions reviewed. f/u 6 wk pp check. breast, rh pos, ri. Documented By: Teresa Nath MD, FACOG Resident Activity Tracking <Nathaly Mccoy DO - Last Filed: 11/22/20 06:37> Resident Involvement: Resident Care Provided Care Provided: OB Delivery
[2020-11-22] MEDS: IBUPROFEN 600 MG TAB PO PRN (07:45)
[2020-11-22] MEDS: PRENATAL VITAMIN 1 TAB PO SCH (07:45)
[2020-11-22] MEDS: DOCUSATE SODIUM 100 MG CAP PO SCH (07:46)
[2020-11-22] MEDS: FLUTICASONE/VILANTEROL 200/25MCG 14 PUFFS/INHALER INH SCH (07:46)
[2020-11-22] MEDS: VENLAFAXINE HCL XR 150 MG CAPXR PO SCH (12:27)
== END 2020-11-22 12:40 | disposition home or self-care (01) | DRG 807 ==
LOC: OPB 12:36 → 4S1 12:38 → 4S2 11-20 04:29